=== PATIENT | male | born 1990 | race Caucasian/White ===

== ENCOUNTER → 2021-06-19 | Outpatient (CLI) | payer OTHER ==
[~2021-06-19] MED LIST: GADOTERATE 5 MMOL/10ML VIAL. INT ART ONE; IOHEXOL 300 MG/ML 50 ML VIAL. INT ART ONE; LIDOCAINE 1% Multi-Dose 20 ML VIAL. ID ONE
--- NOTE | 2021-06-19 16:45 | KCIC ---
FLUOROSCOPICALLY GUIDED LEFT SHOULDER ARTHROGRAM 1. INDICATION: The patient is a 31 years old Male who presented with worsening chronic left shoulder pain. 2. CONSENT: The risks, benefits, treatment options, potential complications and personnel to be invo lved were discussed (including the risks of radiation exposure, instruments to be used, contrast and anesthesia administration) with the patient. All questions were answered and consent was obtained. Th e patient indicated willingness to proceed. 3. GENERAL: a) Medication Reconciliation: The patient's medications and allergies were reviewed in the [facility] medical record and reconciled to the proposed procedure/treatment. Pre-procedure Sign-in: Safety Checklist Performed Yes b) Positioning: The patient was placed Supine on the fluoroscopy table. c) The shoulder was then sterilely prepped and draped. d) Time Out: A time out was performed immediately prior to procedure start with the nursing, anesthes ia and interventional team, correctly identifying the patient name, date of , procedure, anatomy (including marking of site and side), patient position, procedure consent form, relevant diagnostic and radiology test results, antibiotic administration, safety precautions, and procedure-specific equ ipment needs. e) Anesthesia Type: Local anesthesia: 3 mL 1% Lidocaine 4. PROCEDURE: a) Procedure Details: A 22g spinal needle was inserted into the shoulder joint. 1 mL Omnipaque 300 w as injected to confirm intra-articular placement of needle. Contrast was observed to flow into the in tra-articular space of the joint without significant resistance. 12 mL of injectate was administered into the joint. The needle was removed. Images were stored to the permanent digital archive documenti ng needle position. b) Injectate Contents: 20 mL Normal Saline 0.2 mL Clariscan c) Estimated Blood Loss: 0 mL RADIATION DOSE: Fluoroscopic Radiation Summary: Fluoroscopy Time: 0:09 min:sec Number of Images: 1 POST PROCEDURE: a) Hemostasis: Hemostasis was achieved using light manual compression. b) Sign-out: Communication Performed Yes c) Conclusion: The patient was discharged from the radiology department in stable condition. COMPLICATIONS: a) Significant Patient Complication: None If other, explain: b) Complications during the procedure: None If other, explain: 5. RESULTS: Contrast was injected into the joint. 6. IMPRESSION: SUCCESSFUL FLUOROSCOPICALLY GUIDED ARTHROGRAM OF THE LEFT SHOULDER DESCRIBED ABOVE. Electronically signed by: Remington Holley DO (06/19/2021 4:42 PM) [id number]
--- NOTE | 2021-06-19 17:02 | KCIC ---
EXAMINATION: MR ARTHROGRAM LEFT SHOULDER CLINICAL HISTORY: Chronic left shoulder pain, worsening x6-8 weeks. Concern for rotator cuff tendinit is and SLAP tear. TECHNIQUE: MRI shoulder arthrogram protocol. Procedural portion of the arthrogram reported separately . COMPARISON: None FINDINGS: LABRUM: Small tear in the posterior inferior labrum and blunting of the labrum posteriorly. TENDONS: Small low-grade partial-thickness articular sided tear/fraying at the junction of the supras pinatus and infraspinatus tendons. Subscapularis and teres minor tendons intact. Long head biceps ten don intact and appropriately located. MUSCLES: Rotator cuff muscle bulk and signal intensity within normal limits. GLENOHUMERAL JOINT: No full-thickness chondral defect visualized. ACROMIOCLAVICULAR JOINT: Within normal limits. BONES/MARROW: No evidence of acute fracture or suspicious marrow replacing process. IMPRESSION: Posterior labral degeneration with small tear in the posterior inferior labrum. Small low-grade partial thickness tear/fraying at the junction of the supraspinatus and infraspinatus tendons. Electronically signed by: Remington Holley DO (06/19/2021 5:00 PM) [id number]
== END | disposition home or self-care (01) ==
LOC: KCIC 14:23
PROVIDERS: ATTEND Physician Assistant
DX: S43.432A Superior glenoid labrum lesion of left shoulder, initial encounter (principal); M75.82 Other shoulder lesions, left shoulder; M25.512 Pain in left shoulder; Z79.899 Other long term (current) drug therapy; X58.XXXA Exposure to other specified factors, initial encounter; Y93.89 Activity, other specified; Y92.89 Other specified places as the place of occurrence of the external cause; Y99.8 Other external cause status
CPT/HCPCS: 23350; 73222; 77002; A9575; J3490; Q9967